=== PATIENT | female | born 1985 | race Caucasian/White ===

== ENCOUNTER 2018-02-14 22:57 | Emergency (ER) | payer MEDICAID ==
[~2018-02-14] VITALS: Ht 157.5 cm; Wt 58.2 kg
[2018-02-15 00:08] LABS: BASOPHILS % 0.6 % (0.0-2.0); EOSINOPHILS % 2.2 % (0.0-5.0); HEMATOCRIT. 35.9 % (36.0-48.0); HEMOGLOBIN. 12.6 g/dL (12.0-16.0); LYMPHOCYTES % 38.9 % (20.0-50.0); MEAN CORPUSCULAR VOLUME 88.4 fL (81.0-99.0); MEAN PLATELET VOLUME 8.6 fl (7.4-10.4); NEUTROPHILS % 50.3 % (40.0-76.0); PLATELET 206 x1000/uL (130-400); RED BLOOD CELL COUNT 4.06 mill/uL (4.2-5.4); RED CELL DISTRIBUTION WIDTH 12.7 % (11.6-14.6)
[2018-02-15 00:13] LABS: CHLORIDE 105 mEq/L (98-107)
[2018-02-15 00:18] LABS: D-DIMER 0.19 mg/L FEU (<0.50); PROTHROMBIN TIME 10.5 sec (9.1-11.1)
[2018-02-15 01:05] VITALS: BP 106/80
== END 2018-02-15 01:08 | disposition home or self-care (01) ==
LOC: ER 22:57
DX: M54.12 Radiculopathy, cervical region (principal)
CPT/HCPCS: 36415; 71045; 80053; 81025; 84484; 85025; 85379; 85610; 93005; 99285